=== PATIENT | female | born 1990 ===

== ENCOUNTER 2024-10-10 09:02 | Emergency (ER) | payer MEDICARE, MEDICAID, SELFPAY ==
[2024-10-10 09:06] VITALS: BP 119/79; PULSE 110; RESP 16; TEMP 36.6; O2SAT 98; BMI 25.7
--- NOTE | 2024-10-10 09:16 | ED_ITS ---
HPI - General Adult General Chief complaint: General Medical Stated complaint: Sore throat, fever Time Seen by Provider: 10/10/24 09:16 Source: patient Mode of arrival: ambulatory Limitations: no limitations History of Present Illness ED Provider: Yariel Huddleston PA-C HPI narrative: 34 yo female presenting to the ER for evaluation of 3 days of worsening sore throat, body aches along with chills and subjective fevers. She reports decreased PO intake due to sore throat. Pain is worse when swallowing. She reports subjective fevers and sweats at night. She has diffuse body aches. No rashes, abdominal pain, chest pain, cough, diarrhea, nausea or vomiting. No known sick contacts. MD complaint: sore throat, body aches Onset (ago): day(s) (3) Location: mouth and neck Radiation: non-radiation Severity: severe Severity scale (1-10): 8 Quality: stabbing Pain Consistency: constant Relieving factors: none Exacerbating factors: eating Associated symptoms: loss of appetite, weakness and other (body aches) Treatments prior to arrival: none Related Data Previous Rx's ?Medication ?Instructions ?Recorded azithromycin 250 mg tablet See Rx Instructions PO .COMPLEX #6 10/10/24 (Zithromax Z-Gabe) tabs Allergies Allergy/AdvReac Type Severity Reaction Status Date / Time amoxicillin [AMOXICILLIN] Allergy Unknown UNKNOWN Verified 10/10/24 09:10 ampicillin [AMPICILLIN] Allergy Unknown UNKNOWN Verified 10/10/24 09:10 aspirin [ASPIRIN] Allergy Unknown UNKNOWN Verified 10/10/24 09:10 penicillin G [PENICILLIN G] Allergy Unknown HIVES Verified 10/10/24 09:10 penicillin V Allergy Unknown hives and Verified 10/10/24 09:10 swelling Review of Systems Review of Systems: Yes all other systems are reviewed and are negative [facility] Social History Social History (System 07/19/24 @ 15:21 by Tiff Finch) Advance Directives: No Advance Directives Information Provided: No Do you have a plan to hurt others: No Plan Physical Exam ED Vital Signs: Vital Signs - 24 hr 10/10/24 09:06 Temperature 97.8 F Pulse Rate 110 H Respiratory Rate 16 Blood Pressure 119/79 Pulse Oximetry 98 Oxygen Delivery Method Room Air BMI result Body Mass Index 25.7 Appearance: Alert. Oriented X3. No acute distress. Head: normocephalic, atraumatic. Eyes: Pupils equal, round and reactive to light. ENT: Pharynx with moist mucus membranes. Bilateral tonsillar swelling and erythema w/ exudate. uvula midline. normal voice, handling secretions normally. Neck: Normal inspection. Neck supple. no LAD CVS: Normal heart rate and rhythm. Pulses normal. Respiratory: No respiratory distress. Breath sounds normal. Abdomen: Soft and nontender. +BS x4 Skin: Skin warm and dry. Normal skin color. Normal skin turgor. No rashes. Extremities: No lower extremity edema. No joint swelling. Neuro/psych: Oriented X 3. Grossly normal, nonfocal. Normal speech and cogniti on. Medications Administered Discontinued Medications Generic Name Dose Route Start Last Admin Trade Name Nabeelq PRN Reason Stop Dose Admin Azithromycin 500 mg 10/10/24 09:34 10/10/24 09:39 Azithromycin 500 Mg Tablet PO 10/10/24 09:35 500 mg ONCE ONE Administration Ibuprofen 600 mg 10/10/24 09:33 10/10/24 09:39 Ibuprofen 600 Mg Tablet PO 10/10/24 09:34 600 mg ONCE ONE Administration Lidocaine HCl 15 ml 10/10/24 09:24 10/10/24 09:39 Lidocaine Hcl Viscous 2 % 15 Ml Solution MUCOUS MEM 10/10/24 09:25 15 ml ONCE ONE Administration Medical Decision Making Medical Decision Making [facility] Narrative: 34 yo female presenting with sore throat, fever, chills x3 days. exam c/w tonsillitis. no evidence of abscess. nontoxic appearing. VSS. tested positive for strep. PCN allergic. starting azithromycin, tolerated PO here. stable for d/c home on PO abx. patient agrees w/ plan. Differential Diagnosis Differential Diagnoses: The differential diagnosis associated with the presentation includes strep, covid, flu, rsv, other viral syndrome, bronchitis, pneumonia, no evidence of peritonsillar abcsess or retropharyngeal abscess Lab Data [facility] Lab Attestation statement: I reviewed the patient's lab results. Labs: Lab Results 10/10/24 Range/Units 09:14 Influenza Type A (PCR) NEGATIVE (Negative) Influenza Type B (PCR) NEGATIVE (Negative) RSV RNA Qual (PCR) NEGATIVE (Negative) SARS-CoV-2 RNA (RT-PCR) NEGATIVE (Negative) S. pyogenes GrpA AKHIL Positive A (Negative) Prescription Management I considered prescription management with: Pain Medication and Antibiotic Critical Care Time Critical Care Time Critical Care Time: No Discharge Plan Discharge Clinical Impression: Strep pharyngitis Patient Disposition: Home, Self-Care Instructions: Strep Throat (DC) Additional Instructions: You have strep throat Take the prescribed antibiotics as directed, complete the entire course and do not miss any doses Start the antibiotic tomorrow - you were given 1 dose today in the ER Do warm salt water gargles 3x per day Take tylenol or ibuprofen as needed for pain Drink plenty of fluids. If you develop new or worsening symptoms call 911 or come back to the ER for further evaluation. Prescriptions: New azithromycin [Zithromax Z-Gabe] 250 mg tablet See Rx Instructions .ROUTE .COMPLEX Qty: 6 0RF Rx Instructions: take 500 mg today (day 1), then 250 mg for 4 days (days 2-5) Referrals: Navarro Casas PA [Primary Care Provider] - Stand Alone Forms: Work/School Release Print Language: Latvian
[2024-10-10 09:31] LABS: IDNOW Serial# 58CA691E; Strep A Nucleic Acid Positive (Negative)
[2024-10-10] MEDS: Ibuprofen 600 MG TABLET PO (09:39)
[2024-10-10] MEDS: Azithromycin 500 MG TABLET PO (09:39)
[2024-10-10] MEDS: Lidocaine HCl Viscous 2 % 15 ML SOLUTION MUCOUS MEM (09:39)
[2024-10-10 10:20] LABS: Influenza A PCR NEGATIVE (Negative); Influenza B PCR NEGATIVE (Negative); Resp Syncy Virus RNA Qual PCR NEGATIVE (Negative); SARS COV2 PCR INHOUSE NEGATIVE (Negative)
[2024-10-10 10:30] VITALS: BP 119/79; PULSE 110; RESP 16; TEMP 36.6; O2SAT 98
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
--- OUTSIDE RECORDS SUMMARY | 2024-10-10 10:45 | XMS_ITS | Clinical Summary ---
Author Organization [facility] Address [address] [place] [address] Phone Care Team Providers Care Cabana Attendant Name Role Phone Physician, Pcp Unknown Primary Care Provider Jigna vailable Medications methocarbamoL (ROBAXIN) 750 mg tablet Take 1 tablet (750 mg total) by mouth 4 (four) times a day for 7 days. 28 each 08/17/2024 Active Active Problems No known active problems Encounters Date Type Department Care Team Description 08/17/2024 6:16 PM EDT - 08/17/2024 8:40 PM EDT Emergency [facility] Emergency [address] [place] [address] Oscar Isaac MD Lumbar strain, initial encounter (Primary Dx) Discharge Disposition: Home or Self Care from Last 3 Months Social History Tobacco Use Types Packs/Day Years Used Date Smoking Tobacco: Never Smokeless Tobacco: Never Tobacco Cessation:Counseling Given: Not Answered Comments Unknown Sex and Gender Information Value Date Recorded Sex Assigned at Female 08/17/2024 6:08 PM EDT Legal Sex Female 5:36 AM EST Gender Identity Female 08/17/2024 6:08 PM EDT Sexual Orientation Choose not to disclose 2024 6:08 PM EDT Obstetrics History Last Filed Vital Signs Vital Sign Reading Time Taken Comments Blood Pressure 120/78 08/17/2024 8:39 PM EDT Pulse 90 08/17/2024 8:39 PM EDT Temperature 36.7 ??C (98.1 ??F) 08/17/2024 8:39 PM ED T Respiratory Rate 18 08/17/2024 8:39 PM EDT Oxygen Saturation 99% 08/17/2024 8:39 PM EDT Inhaled Oxygen Concentration - - Weight 63.5 kg (140 lb) 08/17/2024 3:50 PM EDT Height 162.6 cm (5' 4 ) 08/17/2024 3:50 PM EDT Body Mass Index 24.03 08/17/2024 3:50 PM EDT Plan of Treatment Health Maintenance Due Date Last Done Comments Hepatitis B Vaccines (1 of 3 - 19+ 3-dose series) 2009 Cervical Cancer Screening: Pap Smear 09/09/2011 COVID-19 Vaccine (3 - Pfizer risk series) 11/06/2020 10/09/2020, 09/18/2020 HIV Screening 04/26/2022 Social Influencers of Health Screening 04/26/2022 Cholesterol Screening (Lipid Panel) 07/26/2022 07/26/2017 Depression Screening 01/04/2025 01/05/2024 DTaP,Tdap,and Td Vaccines (3 - Td or Tdap) 07/23/2027 07/22/2017, 06/12/2016 Hepatitis C Screening Completed 03/05/2021 Influenza Vaccine Completed 03/07/2024, , 02/15/2019, Additional history exists HIB Vaccines Aged Out No longer eligi ble based on patient's age to complete this topic HPV Vaccines Aged Out No longer eligi ble based on patient's age to complete this topic Hepatitis A Vaccines Aged Out No long er eligible based on patient's age to complete this topic IPV Vaccines Aged Out No longer eligi ble based on patient's age to complete this topic MMR Vaccines Aged Out No longer eligi ble based on patient's age to complete this topic Meningococcal ACWY Vaccine Aged Out N o longer eligible based on patient's age to complete this topic Meningococcal B Vaccine Aged Out No l onger eligible based on patient's age to complete this topic Pneumococcal Vaccine: Pediatrics (0 to 5 Years) and At-Risk Patients (6 to 64 Years) Aged Out No longer eligible based on patient's age to complete this topic RSV Immunization Patients Under 20 months Aged Out No longer eligible based on patient's age to complete this topic Varicella Vaccines Aged Out No longer eligible based on patient's age to complete this topic Procedures Procedure Name Priority Date/Time Associated Diagnosis Comments POC , URINE DIAGNOSTIC STAT 08/17/2024 4:36 PM EDT SALAS URINE CULTURE TUBE STAT 08/17/2024 4:30 PM EDT URINALYSIS WITH REFLEX MICROSCOPIC AND CULTURE STAT 08/17/2024 4:30 PM EDT URINALYSIS WITH REFLEX MICROSCOPIC AND CULTURE STAT 08/17/2024 4:30 PM EDT CULTURE URINE STAT 08/17/2024 4:30 PM EDT CBC WITH AUTO DIFFERENTIAL STAT 08/17/2024 4:24 PM EDT COMPREHENSIVE METABOLIC PANEL STAT 08/17/2024 4:24 PM EDT CBC AND DIFFERENTIAL STAT 08/17/2024 4:24 PM EDT from Last 3 Months Results * POC , urine manually resulted (08/17/2024 4:36 PM EDT) [facility] HCG, Ur POC Negative Negative POC hCG Int QC Pass? Yes Yes EXPIRATION DATE POC 03/06/2026 LOT NUMBER POC [id number] Urine Urine specimen obtained by clean catch procedure / Unknown 08/17/2024 4:36 PM EDT Oscar Isaac MD POINT OF CARE TEST ENTER/EDIT O RDERABLES Final Result * (ABNORMAL) Urinalysis with reflex microscopic and culture (08/17/2024 4:30 PM EDT) [facility] Specific Basco Urine 1.008 1.003 - 1.030 LAB URINALYSIS - AUTOMATED METHOD 08/17/2024 4:58 PM EDT [facility] pH, Urine 6.5 5.0 - 8.0 pH LAB URINALYSIS - AUTOMATED METHOD 08/17/2024 4:58 PM EDT [facility] Leukocytes, Urine Trace(A) Negative LAB URINALYSIS - AUTOMATED METHOD [facility] Nitrite, Urine Negative Negative LAB URINALYSIS - AUTOMATED METHOD 08/17/2024 4:58 PM [facility] Protein, Urine Negative <=Trace mg/dL LAB URINALYSIS - AUTOMATED METHOD 08/17/2024 4:58 PM [facility] Glucose, Urine Negative Negative mg/dL LAB URINALYSIS - AUTOMATED METHOD 08/17/2024 4:58 PM [facility] Ketones, Urine Negative Negative mg/dL LAB URINALYSIS - AUTOMATED METHOD 08/17/2024 4:58 PM [facility] Urobilinogen, Urine 0.2 0.2 - 1.0 mg/dL LAB URINALYSIS - AUTOMATED METHOD 08/17/2024 4:58 PM [facility] Bilirubin, Urine Negative Negative LAB URINALYSIS - AUTOMATED METHOD 08/17/2024 4:58 PM [facility] Blood, Urine Negative Negative LAB URINALYSIS - AUTOMATED METHOD 08/17/2024 4:58 PM [facility] RBC, Urine 4.4(H) 0 - 4 /HPF LAB URINALYSIS - AUTOMATED METHOD 08/17/2024 4:58 PM [facility] WBC, Urine 12.1(H) 0 - 4 /HPF LAB URINALYSIS - AUTOMATED METHOD 08/17/2024 4:58 PM [facility] Squamous Epithelial, Urine 54 0 - 60 /LPF LAB URINALYSIS - AUTOMATED METHOD 08/17/2024 4:58 PM [facility] Bacteria, Urine Few(A) Negative /HPF LAB URINALYSIS - AUTOMATED METHOD 08/17/2024 4:58 PM [facility] Hyaline Casts, Urine 0.8 0 - 3 /LPF LAB URINALYSIS - AUTOMATED METHOD 08/17/2024 4:58 PM [facility] Urine Urine specimen obtained by clean catch procedure / Unknown Non-blood Collection / Unknown 08/17/2024 4:30 PM EDT 08/17/2024 4:39 PM EDT Oscar Isaac MD LAB URINE ORDERABLES Final Resu lt Performing Organization Address City/[facility]/ZIP Co de Phone Number [facility] [address] [place] [address], [place] [phone] * Salas urine culture tube (08/17/2024 4:30 PM EDT) Extra Tube Hold for add-ons. 08/17/2024 6:01 PM EDT [facility] Comment:Auto resulted. Urine Urine specimen obtained by clean catch procedure / Unknown Non-blood Collection / Unknown 08/17/2024 4:30 PM EDT 08/17/2024 4:39 PM EDT Oscar Isaac MD LAB URINE ORDERABLES Final Resu lt Performing Organization Address [place]/[facility]/ZIP Co de Phone Number [facility] [address] [place] [address], [place] [phone] * (ABNORMAL) Culture urine (08/17/2024 4:30 PM EDT) Culture, Urine >100,000 CFU/mL Klebsiella pneumoniae ssp pneumoniae(A) ERWIN 08/19/2024 12:59 PM EDT [facility] Comment: This is an edited result. Previous organism was Gram negative bacilli on 08/18/2024 at 0838 EDT. Urine Urine specimen obtained by clean catch procedure / Unknown Non-blood Collection / Unknown 08/17/2024 4:30 PM EDT 08/17/2024 4:58 PM EDT Narrative Organism Antibiotic Method Susceptibility Klebsiella pneumoniae ssp pneumoniae Amoxicillin/Clavulanate ERWIN <=2 ug/ml: Susceptible Klebsiella pneumoniae ssp pneumoniae Ampicillin/Sulbactam ERWIN 4 ug/ml: Susceptible Klebsiella pneumoniae ssp pneumoniae Piperacillin/Tazobactam ERWIN <=4 ug/ml: Susceptible Klebsiella pneumoniae ssp pneumoniae Cefazolin (Urine) ERWIN 2 ug/ml: Susceptible Klebsiella pneumoniae ssp pneumoniae Cefoxitin ERWIN <=4 ug/ml: Susceptible Klebsiella pneumoniae ssp pneumoniae Ceftazidime ERWIN <=0.5 ug/ml: Susceptible Klebsiella pneumoniae ssp pneumoniae Ceftriaxone ERWIN <=0.25 ug/ml: Susceptible Klebsiella pneumoniae ssp pneumoniae Cefepime ERWIN <=0.12 ug/ml: Susceptible Klebsiella pneumoniae ssp pneumoniae Meropenem ERWIN <=0.25 ug/ml: Susceptible Klebsiella pneumoniae ssp pneumoniae Amikacin ERWIN <=1 ug/ml: Susceptible Klebsiella pneumoniae ssp pneumoniae Gentamicin ERWIN <=1 ug/ml: Susceptible Klebsiella pneumoniae ssp pneumoniae Ciprofloxacin ERWIN <=0.06 ug/ml: Susceptible Klebsiella pneumoniae ssp pneumoniae Levofloxacin ERWIN <=0.12 ug/ml: Susceptible Klebsiella pneumoniae ssp pneumoniae Nitrofurantoin ERWIN <=16 ug/ml: Susceptible Klebsiella pneumoniae ssp pneumoniae Trimethoprim/Sulfamethoxazo le ERWIN <=20 ug/ml: Susceptible Oscar Isaac MD LAB MICROBIOLOGY - [facility] Final Result [facility] [address] [place] [address], * (ABNORMAL) CBC auto differential (08/17/2024 4:24 PM EDT) [facility] Signature WBC 7.4 4.8 - 10.8 K/mcL LAB HEMETOLOGY METHOD 08/17/2024 4:46 PM EDT [facility] RBC 4.60 3.80 - 4.80 M/mcL LAB HEMETOLOGY METHOD 08/17/2024 4:46 PM EDT [facility] Hemoglobin 11.9 11.5 - 16.0 g/dL LAB HEMETOLOGY METHOD 08/17/2024 4:46 PM EDT [facility] Hematocrit 37.5 35.0 - 47.0 % LAB HEMETOLOGY METHOD 08/17/2024 4:46 PM EDT [facility] MCV 82.4 79.0 - 98.0 FL LAB HEMETOLOGY METHOD 08/17/2024 4:46 PM EDT [facility] MCH 26.2(L) 27.0 - 32.0 pcg LAB HEMETOLOGY METHOD 08/17[facility]2024 [facility] MCHC 31.7(L) 32.0 - 37.0 g/dL LAB HEMETOLOGY METHOD 08/17/2024 4:46 [facility] RDW 15.6(H) 11.0 - 15.0 % LAB HEMETOLOGY METHOD 08/17/2024 4:46 [facility] Platelets 299 130 - 400 K/mcL LAB HEMETOLOGY METHOD 08/17/2024 4:46 [facility] MPV 9.8 7.0 - 11.0 FL LAB HEMETOLOGY METHOD 08/17/2024 4:46 [facility] NRBC 0.0 <1.0 % LAB HEMETOLOGY METHOD 08/17/2024 4:46 PM [facility] NRBC Absolute 0.00 <0.10 K/mcL LAB HEMETOLOGY METHOD 08/17/2024 4:46 PM [facility] Neutrophils Relative 68.5 % LAB HEMETOLOGY METHOD 08/17/2024 4:46 PM [facility] Lymphocytes Relative 21.4 % LAB HEMETOLOGY METHOD 08/17/2024 4:46 PM [facility] Monocytes Relative 8.0 % LAB HEMETOLOGY METHOD 08/17/2024 4:46 PM [facility] Eosinophils Relative 1.4 % LAB HEMETOLOGY METHOD 08/17/2024 4:46 PM [facility] Basophils Relative 0.4 % LAB HEMETOLOGY METHOD 08/17/2024 4:46 [facility] Immature Granulocytes Relative 0.3 % LAB HEMETOLOGY METHOD 08/17/2024 4:46 PM EDT [facility] Neutrophils Absolute 5.07 1.50 - 7.00 [facility] LAB HEMETOLOGY METHOD 08/17/2024 4:46 PM EDT [facility] Lymphocytes Absolute 1.58 1.00 - 5.00 K/mcL LAB HEMETOLOGY METHOD 08/17/2024 4:46 PM EDT [facility] Monocytes Absolute 0.59 0.20 - 1.00 K/mcL LAB HEMETOLOGY METHOD 08/17/2024 4:46 PM EDT [facility] Eosinophils Absolute 0.10 0.00 - 0.50 [facility] LAB HEMETOLOGY METHOD 08/17/2024 4:46 PM EDT [facility] Basophils Absolute 0.03 0.00 - 0.20 K/mcL LAB HEMETOLOGY METHOD 08/17/2024 4:46 PM EDT [facility] Immature Granulocytes Absolute 0.02 0.00 - 0.03 K/mcL LAB HEMETOLOGY METHOD 08/17/2024 4:46 PM EDT [facility] Blood Venous blood specimen / Unknown Venipuncture / Unknown 08/17/2024 4:24 PM EDT 08/17/2024 4:39 PM EDT us Oscar Isaac MD LAB BLOOD ORDERABLES Final Resu lt [facility] [address] [place] [address], * Comprehensive metabolic panel (08/17/2024 4:24 PM EDT) Sodium 135 133 - 145 mmol/L LAB CHEMISTRY METHOD 08/17/2024 5:30 PM EDT [facility] Potassium 4.5 3.5 - 5.5 mmol/L LAB CHEMISTRY METHOD 08/17/2024 5:30 PM [facility] Chloride 104 96 - 110 mmol/L LAB CHEMISTRY METHOD 08/17/2024 5:30 PM [facility] CO2 28 21 - 32 mmol/L LAB CHEMISTRY METHOD 08/17/2024 5:30 PM [facility] Anion Gap 3 3 - 11 LAB CHEMISTRY METHOD 08/17/2024 5:30 PM [facility] Glucose 83 70 - 100 mg/dL LAB CHEMISTRY METHOD 08/17/2024 5:30 PM [facility] BUN 8 5 - 25 mg/dL LAB CHEMISTRY METHOD 08/17/2024 5:30 PM [facility] Creatinine 0.63 0.50 - 1.10 mg/dL LAB CHEMISTRY METHOD 08/17/2024 5:30 PM [facility] eGFR 120 >=60 mL/min/1. 73m2 LAB CHEMISTRY METHOD 08/17/2024 5:30 PM [facility] Comment:Calculation based on the??Chronic Kidney Disease Epidemiology Collaboration (CKD-EPI) equation refit??without adjustment for race. BUN/Creatinine Ratio 12.7 LAB CHEMISTRY METHOD 08/17/2024 5:30 PM [facility] Calcium 9.8 8.5 - 10.5 mg/dL LAB CHEMISTRY METHOD 08/17/2024 5:30 PM [facility] AST (SGOT) 16 10 - 42 unit/L LAB CHEMISTRY METHOD 08/17/2024 5:30 PM [facility] ALT (SGPT) 23 10 - 60 unit/L LAB CHEMISTRY METHOD 08/17/2024 5:30 PM [facility] Alkaline Phosphatase 74 42 - 121 unit/L LAB CHEMISTRY METHOD 08/17/2024 5:30 PM [facility] Total Protein 8.0 6.0 - 8.0 g/dL LAB CHEMISTRY METHOD 08/17/2024 5:30 PM EDT [facility] Albumin 3.9 3.2 - 5.0 g/dL LAB CHEMISTRY METHOD 08/17/2024 5:30 PM EDT [facility] Total Bilirubin 0.4 0.0 - 1.4 mg/dL LAB CHEMISTRY METHOD 08/17/2024 5:30 PM EDT [facility] Blood Venous blood specimen / Unknown Venipuncture / Unknown 08/17/2024 4:24 PM EDT 08/17/2024 4:39 PM EDT us Oscar Isaac MD LAB BLOOD ORDERABLES Final Resu lt [facility] [address] [place] [address], [place] [phone] from Last 3 Months Insurance MEDICAID - [place] Care Teams Cabana Attendant Relationship Specialty Start Date End Date Physician, Pcp Unknown PCP - General 08/17/24
--- OUTSIDE RECORDS SUMMARY | 2024-10-10 10:46 | XMS_ITS | Encounter Summary ---
Author Organization [facility] Address [address] [place] [address] Care Team Providers Care Meal Temperer Name Role Phone Navarro Casas Primary Care Provider [phone] Encounter Details Date Type Department Care Team (Late st Contact Info) Description 07/28/2023 Interim Notes [address] [address] Navarro Casas PA [address] [place] [address] Mild episode of recurrent major depressive disorder (HCC-CMS) (Primary Dx) Social History Tobacco Use Types Packs/Day Years Used Date Smoking Tobacco: Never Smokeless Tobacco: Current Alcohol Use Standard Drinks/Week Comments No 0 [...] and Environment Answer Date Vincent rded Safety 0 12/01/2022 Utilities Answer Date Recorded Utilities 0 12/01/2022 Employment Answer Date Recorded Stress 0 08/11/2021 Comments Unknown Sex and Gender Information Value Date Recorded Sex Assigned at Female 07/19/2017 9:43 AM PST Legal Sex Female 5:52 AM PST Gender Identity Female 07/19/2017 9:43 AM PST Sexual Orientation Straight 07/19/2017 9: 43 AM PST documented as of this encounter Plan of Treatment Not on file documented as of this encounter Visit Diagnoses Diagnosis Mild episode of recurrent major depressive disorder (PACE-HCC V24)- Primary documented in this encounter Additional Health Concerns Assessment Noted Time PHQ-9 Depression Total Score: 15 021 10:28 AM PDT documented as of this encounter Care Teams Meal Temperer Relationship Specialty Start Date End Date Navarro Casas PA [address] [place] [address] PCP - General Internal Medicine 12/08/17 documented as of this encounter
== END 2024-10-10 11:34 | disposition home or self-care (01) ==
PROVIDERS: Emergency Provider Emergency Medicine; PCP Physician Assistant
DX: J02.0 Streptococcal pharyngitis (principal); J02.9 Acute pharyngitis, unspecified; R50.9 Fever, unspecified; Z03.818 Encounter for observation for suspected exposure to other biological agents ruled out
CPT/HCPCS: 0241U; 87651; 99283